=== PATIENT | female | born 1995 | race Two or more races ===

== ENCOUNTER 2019-03-31 21:01 | Emergency (ER) | payer SELFPAY ==
[~2019-03-31] VITALS: Ht 157.5 cm; Wt 55.0 kg
[2019-04-01] MEDS ORDERED: METHYLPREDNISOLONE SOD SUCC 125 MG/2 ML VIAL IV STA (00:40)
[2019-04-01] MEDS ORDERED: IPRATROPIUM BROMIDE (0.02%) 0.5MG/2.5ML NEB HHN STA (00:40)
[2019-04-01] MEDS ORDERED: MAGNESIUM 2 G PREMIX 50 ML IV ONE (00:45)
[2019-04-01 00:58] LABS: BASOPHILS % 1.1 % (0.0-2.0); EOSINOPHILS % 7.1 % (0.0-5.0); HEMATOCRIT. 35.8 % (36.0-48.0); HEMOGLOBIN. 12.5 g/dL (12.0-16.0); LYMPHOCYTES % 50.5 % (20.0-50.0); MEAN CORPUSCULAR HEMOGLOBIN 31.5 pg (28.0-32.0); MEAN CORPUSCULAR VOLUME 90.4 fL (81.0-99.0); MEAN PLATELET VOLUME 8.7 fl (7.4-10.4); MONOCYTES % 10.8 % (2.0-8.0); NEUTROPHILS % 30.5 % (40.0-76.0); PLATELET 221 x1000/uL (130-400); RED BLOOD CELL COUNT 3.96 mill/uL (4.2-5.4)
[2019-04-01] MEDS ORDERED: ALBUTEROL (0.083%) 2.5MG/3ML NEB HHN SCH (01:00)
[2019-04-01 01:04] LABS: CHLORIDE 111 mEq/L (98-107)
[2019-04-01 01:13] VITALS: BP 124/64
== END 2019-04-01 01:18 | disposition home or self-care (01) ==
LOC: ER 21:01
DX: J45.901 Unspecified asthma with (acute) exacerbation (principal); Z98.890 Other specified postprocedural states
CPT/HCPCS: 36415; 71045; 80053; 85025; 85379; 93005; 94640; 96365; 96375; 99284; J2930; J3475; J7611; Z7610